=== PATIENT | female | born 1965 | race Caucasian/White ===

== ENCOUNTER 2016-12-25 05:24 | Observation (INO) | payer BC ==
--- NOTE | ~2016-12-25 | HP ---
History And Physical [facility] [id number] [place]. [address] NAME: JASMINE TOURE : 61 STATUS : ADM Carissa PAT#: [id number] AGE: 51 ADM/REG DATE : 12/25/16 MR#: [id number] REPORT SERV DATE: 12/25/16 DICTATED BY: IWONA AGUIRRE DATE: 12/25/16 REPORT STATUS : Draft TRANSCRIBED BY: MODL DATE: 12/25/16 DATE OF ADMISSION: 12/25/2016 CHIEF COMPLAINT: Fatigue and chest pressure. HISTORY OF PRESENT ILLNESS: A pleasant 51-year-old, obese, white female with no known history of CAD, reports several months of fatigue. She states that over the past several days, she has experienced episodic chest pain with no clear pattern or exertional component described. She describes the chest pain as a "pressure, sticky pain." Previously relieved with Aleve. She reports that this "sticky pain" came and went on 12/24/2016 at midnight. She awoke with chest pain and pressure with shortness of breath, nausea, some dizziness, and considerable belching. She denies any diaphoresis early this morning. She rated the chest pain a 9/10. At the time of interview in the [facility], she rates it a 2/10. It is reproducible on exam across her anterior chest eliciting a wince and withdrawal. She states the episode lasted several hours in duration and was improved with aspirin and antiemetics and nitroglycerin provided by the emergency room. 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 She denies any personal history of myocardial infarction, stroke, DVT, or pulmonary embolus and reports having had a stress test probably 3 years ago at an outside facility which was negative per the patient's report. The patient denies any recent fever or chills, was treated for an ear infection in 09/2016. No palpitations. No syncopal episodes. Denies PND or orthopnea. Of note, the patient has undergone several esophageal dilatations. Most recently in [address] Walker at [place]. PAST MEDICAL HISTORY: 1. GERD. 2. Hypothyroid, on replacement. 3. BMI, greater than 30. 4. Large chest. 5. Fibromyalgia. 6. Cholesterol, followed by PCP. 7. Denies hypertension or diabetes. 8. Positive family history for early CAD. PAST SURGICAL HISTORY: None. SOCIAL HISTORY: She is , with two children. 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 She does not have an exercise routine. Denies tobacco, alcohol, or illicits. FAMILY HISTORY: Mother with a heart attack in her 50s, of a heart attack at 62. Father in his 70s of stomach cancer. One brother with a heart attack in his late 60s, remains living. History And Physical [address] [address] NAME: JASMINE TOURE : 61 STATUS : ADM Carissa PAT#: [id number] AGE: 51 ADM/REG DATE : 12/25/16 MR#: [id number] REPORT SERV DATE: 12/25/16 DICTATED BY: IWONA AGUIRRE DATE: 12/25/16 REPORT STATUS : Draft TRANSCRIBED BY: MICHELE DATE: 12/25/16 REVIEW OF SYSTEMS: A 14-point review of systems performed significant for HPI including snores per report with no formal sleep study. Otherwise, complete review of systems obtained and negative. ALLERGIES: HYDROCODONE CAUSES A RASH HOME. HOME MEDICATIONS: Cymbalta 60 mg daily, levothyroxine 75 mcg daily, Prilosec 40 mg daily, vitamin C, multivitamin, vitamin B12, Osteo Vitamin, and biotin. PHYSICAL EXAMINATION: VITAL SIGNS: Blood pressure 150/71, pulse 73, respirations 18, temperature 97.5, O2 saturation 99% on room air, height 5 feet 7 inches, weight 244 pounds, and BMI 38. GENERAL: Cooperative, in no apparent distress. HEENT: Pupils 2 mm, sclera nonicteric. Nares patent. Moist mucous membranes. No xanthelasma. NECK: Trachea midline, no thyromegaly. No JVD. No bruits. LYMPH: No cervical lymphadenopathy. No supraclavicular lymphadenopathy. CHEST: Tender to palpation along the anterior chest eliciting a wince and withdrawal. RESPIRATORY: Unlabored respirations. Breath sounds clear bilaterally to posterior auscultation. No wheezes or rhonchi. CARDIOVASCULAR: Regular rate. No murmur, rub or gallop appreciated. Extremities without edema. Pulses 2+ bilaterally. ABDOMEN: Obese and with no organomegaly appreciated. SKIN: Warm, dry extremities. No pallor, or cyanosis. PSYCHIATRIC: Appropriate affect. Alert, oriented x3. LABORATORY DATA: Troponin less than 0.02, second pending. Potassium 4.0, BUN 10, creatinine 0.89, glucose 136, magnesium 2.1. WBC 7.0, hemoglobin 14.1, hematocrit 43.3, and platelet count 300,000. EKG: Sinus rhythm, inferior Q-waves, anterolateral ST-T changes, no EKG for comparison. ASSESSMENT AND PLAN: 1. Substernal chest pain, rule out myocardial infarction with second troponin and EKG pending. Chest pain is reproducible on exam. The patient has been held n.p.o. We will proceed with cardiac PET once seen by vat house laborer given large chest. The patient will be discharged home if low risk, no ischemia. If anything suggestive of ischemia, Cardiology referral will be initiated. Otherwise, the patient will be asked to follow up with PCP in one to two weeks with all studies being sent to that office. 2. Fatigue. Check a TSH and free T4. 3. Gastroesophageal reflux disease. Continue PPI. 4. Snores per report. Recommend outpatient sleep study through PCP referral or supervisor stitching department. MINDA/MICHELE Iwona History And Physical [address] [address] NAME: JASMINE TOURE : 61 STATUS : ADM Carissa PAT#: [id number] AGE: 51 ADM/REG DATE : 12/25/16 MR#: [id number] REPORT SERV DATE: 12/25/16 DICTATED BY: IWONA AGUIRRE DATE: 12/25/16 REPORT STATUS : Draft TRANSCRIBED BY: MODL DATE: 12/25/16 LUIS ARMANDO Aguirre, [employer] / [id number] CC: LUIS ARMANDO Emerson, [employer] Suzette Chong M.D.
[2016-12-25 04:48] LABS: BASOPHILS 0.1 %; BASOPHILS ABSOLUTE 0.01 10/3/uL (0.0-0.16); EOSINOPHILS 2.4 %; EOSINOPHILS ABSOLUTE 0.17 10/3/uL (0.0-0.53); HEMATOCRIT 43.3 % (36.0-48.0); HEMOGLOBIN 14.1 g/dL (12.0-16.0); IMMATURE GRANULOCYTES 0.1 %; IMMATURE GRANULOCYTES ABSOLUTE 0.01 10/3/uL (0.0-0.11); LYMPHOCYTES ABSOLUTE 1.88 10/3/uL (0.67-4.30); MEAN CORPUS HGB CONC 32.6 g/dL (32.0-36.0); MEAN CORPUSCULAR HEMOGLOB 27.8 pg (26.0-34.0); MEAN CORPUSCULAR VOLUME 85.4 fL (80-100); MEAN PLATELET VOLUME 9.7 fL (9.2-13.0); MONOCYTES 11.9 %; MONOCYTES ABSOLUTE 0.83 10/3/uL (0.21-1.20); NEUTROPHILS 58.5 %; NEUTROPHILS ABSOLUTE 4.07 10/3/uL (2.02-8.40); PLATELET COUNT 300 10/3/uL (150-400); RBC DISTRIBUTION WIDTH 13.3 % (12.0-16.0); RED CELL COUNT 5.07 10/6/uL (4.0-5.6)
[2016-12-25 04:53] LABS: INTERNATIONAL NORMAL RATI 0.9 UNITS (-); PARTIAL THROMBO TIME 24.8 SEC (22.5-37.2); PROTIME (NOT ORD) 12.5 SEC (12.0-14.5)
[2016-12-25 04:58] LABS: MANUAL DIFF NO %
[2016-12-25 05:08] LABS: BUN (BLOOD UREA NITROGEN) 10 MG/DL (6-23); CALCIUM, SERUM 10.2 MG/DL (8.5-10.4); CHEST PAIN PROFILE TAT 0 Hrs 26 Mins; CHLORIDE, SERUM 109 MMOL/L (96-112); CO2 (CARBON DIOXIDE) 27 MMOL/L (24-34); CREATININE 0.89 MG/DL (0.55-1.02); GFR AFRICAN AMERICAN 86 ML/MIN (>=60); GFR NON AFRICAN AMERICAN 74 ML/MIN (>=60); GLUCOSE, SERUM 136 MG/DL (60-99); SODIUM, SERUM 144 MMOL/L (135-148); TROPONIN I <0.02 NG/ML (<0.05)
[2016-12-25] MEDS ORDERED: PRILOSEC40 MG PO (05:50)
[2016-12-25] MEDS ORDERED: CYMBALTA60 PO (05:50)
[2016-12-25] MEDS ORDERED: SYN075 PO (05:50)
[2016-12-25 09:30] LABS: TROPONIN I <0.02 NG/ML (<0.05)
[2016-12-25 10:48] LABS: FREE T4 0.84 NG/DL (0.76-1.46)
== END 2016-12-25 17:26 | disposition home or self-care (01) ==
LOC: ER 05:24 → CDU1 05:38 → CDU2 06:02
PROVIDERS: Clinical Nurse Specialist; Emergency Medicine
DX: R07.2 Precordial pain (principal); R53.83 Other fatigue; K21.9 Gastro-esophageal reflux disease without esophagitis; F32.9 Major depressive disorder, single episode, unspecified; E03.9 Hypothyroidism, unspecified; Z68.30 Body mass index [BMI] 30.0-30.9, adult; M79.7 Fibromyalgia; Z82.49 Family history of ischemic heart disease and other diseases of the circulatory system; Z79.899 Other long term (current) drug therapy; Z88.5 Allergy status to narcotic agent
CPT/HCPCS: 71010; 78492; 80048; 83735; 84439; 84443; 84484; 85025; 85610; 85730; 93005; 93017; 96374; 96375; 99285; A9270-GY; A9555; C9113; G0378; J1980; J2405; J2785